=== PATIENT | female | born 1985 | race American Indian/Alaskan Native ===

== ENCOUNTER 2018-07-17 13:15 | Emergency (ER) | payer OTHER ==
[2018-07-17 14:41] LABS: Urine Bacteria NONE SEEN /HPF (<20); Urine RBC NONE SEEN /HPF (NONE SEEN)
[2018-07-17 14:42] LABS: Urine Culture Reflex Order NOT NEEDED
[2018-07-17] MEDS ORDERED: MORPHINE 4 MG/ML SYR ONE (14:49)
[2018-07-17] MEDS ORDERED: ONDANSETRON 4 MG/2 ML VIAL ONE (14:49)
--- NOTE | 2018-07-17 15:20 | RAD REPORT ---
EXAM DESCRIPTION: US - Abdomen Exam Limited - 07/17/2018 3:07 pm CLINICAL HISTORY: Abdominal pain. COMPARISON: None. FINDINGS: The gallbladder wall is not thickened. A gallstone is not seen. The biliary tree is normal caliber. IMPRESSION: Unremarkable gallbladder ultrasound.
[2018-07-17 15:26] LABS: Absolute Lymphocytes (CBC) 2.8 K/uL (0.7-4.9); Absolute Monocytes 0.6 K/uL (0.1-1.3); Absolute Neutrophil 4.6 K/uL (1.8-8.0); Basophils % 0.9 % (0-1.3); Eosinophils % 2.2 % (0-4.4); Hematocrit 39.2 % (36.0-45.0); Lymphocytes % 34.5 % (15.3-44.8); MCH 28.1 pg (27.0-35.0); MCV 84.1 fL (80-100); MPV 10.2 fL (7.6-11.3); Monocytes % 6.9 % (3.3-12.3); RBC Red Blood Cell Count 4.66 M/uL (3.86-4.86)
[2018-07-17 15:41] LABS: ALT/SGPT 33 U/L (12-78); AST/SGOT 27 U/L (15-37); Albumin 3.7 g/dL (3.4-5.0); Alkaline Phosphatase 56 U/L (45-117); BUN Blood Urea Nitrogen 7 mg/dL (7-18); Bicarbonate 26 mmol/L (21-32); Bilirubin Direct < 0.1 mg/dL (0-0.2); Bilirubin Total 0.6 mg/dL (0.2-1.0); Glucose Level 88 mg/dL (74-106); Lipase 196 U/L (73-393); Potassium 4.1 mmol/L (3.5-5.1); Protein, Total 7.5 g/dL (6.4-8.2); Sodium Level 141 mmol/L (136-145)
[2018-07-17 15:44] LABS: Urine Blood NEGATIVE (NEG); Urine Glucose NEGATIVE (NEG); Urine Protein NEGATIVE (NEG); Urine Specific Gravity 1.015 (1.005-1.030)
--- NOTE | 2018-07-17 16:31 | RAD REPORT ---
EXAM DESCRIPTION: CT - Abdomen Pelvis W Contrast - 07/17/2018 4:05 pm CLINICAL HISTORY: Abdominal pain/right upper quadrant pain COMPARISON: none. TECHNIQUE: Computed axial tomography of the abdomen pelvis was obtained. 100 cc Isovue-300 was admin istered intravenously. Oral contrast was not requested which limits evaluation of bowel. All CT scans are performed using dose optimization technique as appropriate and may include automated exposure control or mA/KV adjustment according to patient size. FINDINGS: The liver, spleen, pancreas, adrenal and kidneys appear unremarkable. There is no evidence of diverticulitis. The appendix is normal. 5 centimeter cystic right adnexal mass contains layering area of increased density likely representin g blood A small amount of ascites Small umbilical hernia IMPRESSION: A 5 centimeter complex cystic mass in the right adnexa likely representing a hemorrhagic ovarian cyst. Small amount of free fluid. It is recommended that the patient have followup ultrasound in couple months to assess stability/reso lution.
--- NOTE | 2018-07-17 17:08 | EDPHYS ---
Physician Documentation [facility] Name: Zaria Bradley Age: 32 yrs Sex: Female : 1985 Arrival Date: 07/17/2018 Time: 13:16 Bed 19 Private MD: None, None ED Physician Nenita Palmer HPI: 07/17 14:30 This 32 yrs old Other Female presents to ER via Ambulatory with complaints of Abdominal jmm Pain. 14:30 The patient presents with abdominal pain in the right upper quadrant, right lower jmm quadrant. Onset: The symptoms/episode began/occurred today. The symptoms radiate to Associated signs and symptoms: Pertinent negatives: fever, vomiting. The symptoms are described as achy. Modifying factors: The symptoms are alleviated by nothing, the symptoms are aggravated by. This is a 32 year old female with a history of ovarian cysts that presents to the ED with right sided abdominal pain beginning today. Denies vomiting or diarrhea. Pain radiates to her lower back. . 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 - Social history:: Smoking status: Patient/guardian denies using tobacco. - Ebola Screening: : Patient denies travel to an Ebola-affected area in the 21 days before illness onset. ROS: 14:30 Constitutional: Negative for fever, chills, and weight loss, Eyes: Negative for injury, jmm pain, redness, and discharge, ENT: Negative for injury, pain, and discharge, Neck: Negative for injury, pain, and swelling, Cardiovascular: Negative for chest pain, palpitations, and edema, Respiratory: Negative for shortness of breath, cough, wheezing, and pleuritic chest pain. 14:30 MS/Extremity: Negative for injury and deformity, Skin: Negative for injury, rash, and discoloration, Neuro: Negative for headache, weakness, numbness, tingling, and seizure. 14:30 Abdomen/GI: Positive for abdominal pain. 14:30 Back: Positive for radiated pain. 14:30 All other systems are negative. Exam: 14:30 Head/Face: atraumatic. Eyes: EOMI, no conjunctival erythema appreciated ENT: Moist evelyne Mucus Membranes Neck: Trachea midline, Supple Chest/axilla: Normal chest wall appearance and motion. Cardiovascular: Regular rate and rhythm. No edema appreciated Respiratory: Normal respirations, no respiratory distress appreciated 14:30 Constitutional: The patient appears alert, awake, uncomfortable. 14:30 Abdomen/GI: Inspection: abdomen appears normal, Bowel sounds: normal, Palpation: soft, mild abdominal tenderness, in the right upper quadrant, moderate abdominal tenderness, in the suprapubic area and right lower quadrant. 14:30 Back: ROM is normal. 14:30 Musculoskeletal/extremity: ROM: intact in all extremities. 14:30 Skin: Appearance: Color: normal in color. 14:30 Neuro: Orientation: is normal, Mentation: is normal, Memory: is normal, Gait: is steady. 14:30 Psych: Behavior/mood is pleasant, cooperative. Vital Signs: 13:41 BP 151 / 104; Pulse 83; Resp 18; Temp 98.8; Pulse Ox 100% on R/A; Weight 81.65 kg (R); aj1 Height 5 ft. 4 in. (162.56 cm) (R); Pain 6/10; 14:50 BP 116 / 82; Pulse 80; Resp 18; Pulse Ox 100% on R/A; Pain 6/10; em 15:30 BP 112 / 75; Pulse 80; Resp 15; Pulse Ox 99% on R/A; em 16:51 BP 116 / 74; Pulse 75; Resp 19; Pulse Ox 100% on R/A; em 13:41 Body Mass Index 30.90 (81.65 kg, 162.56 cm) aj1 MDM: 14:30 Patient medically screened. hugo 17:06 Data reviewed: vital signs, nurses notes. Counseling: I had a detailed discussion with hugo the patient and/or guardian regarding: the historical points, exam findings, and any diagnostic results supporting the discharge/admit diagnosis, radiology results, the need for outpatient follow up, to return to the emergency department if symptoms worsen or persist or if there are any questions or concerns that arise at home. 17:07 Data reviewed: lab test result(s), radiologic studies. [facility] 17:07 ED course: Pain has decreased in the ED. Patient advised to follow up with CELLULOID TRIMMER. [facility] Patient given strict return precautions. Patient and understood and agree with the plan of care. . 07/17 14:05 Order name: Urine Microscopic Only; Complete Time: 14:44 eb 07/17 14:37 Order name: Urine Dipstick--Ancillary (enter results); Complete Time: 15:47 gm 07/17 14:37 Order name: Basic Metabolic Panel; Complete Time: 15:45 [facility] 07/17 14:37 Order name: CBC with Diff; Complete Time: 15:45 [facility] 07/17 14:37 Order name: Creatinine for Radiology; Complete Time: 15:45 [facility] 07/17 14:37 Order name: Hepatic Function; Complete Time: 15:45 [facility] 07/17 14:37 Order name: Lipase; Complete Time: 15:45 [facility] 07/17 14:37 Order name: IV Saline Lock; Complete Time: 15:10 [facility] 07/17 14:37 Order name: Labs collected and sent; Complete Time: 15:10 [facility] 07/17 14:37 Order name: US Abdomen Limited; Complete Time: 15:22 [facility] 07/17 14:37 Order name: Urine --Ancillary (enter results); Complete Time: 15:47 gm 07/17 15:22 Order name: CT Abd/Pelvis - W/Contrast; Complete Time: 16:40 [facility] 07/17 14:37 Order name: Urine Test (obtain specimen); Complete Time: 14:39 jm Administered Medications: No medications were administered Disposition: 07/17/18 17:07 Discharged to Home. Impression: Unspecified ovarian cysts. - Condition is Stable. - Discharge Instructions: Ovarian Cyst. - Prescriptions for Zofran ODT 4 mg Oral tablet,disintegrating - place 1 tablet by TRANSLINGUAL route every 4-6 hours; 20 tablet. Tylenol- Codeine #3 300-30 mg Oral Tablet - take 1 tablet by ORAL route every 6 hours As needed; 12 tablet. Cephalexin 500 mg Oral Capsule - take 1 capsule by ORAL route every 12 hours for 10 days; 20 capsule. - Medication Reconciliation Form, Thank You Letter, Antibiotic Education, Prescription Opioid Use form. - Follow up: Owen Vega MD; When: 2 - 3 days; Reason: Recheck today's complaints, Continuance of care, Re-evaluation by your physician. Addendum: 07/21/2018 17:23 Co-signature as Attending Physician, Nenita Palmer MD. m a2 Signatures: Dispatcher [employer] Edita Walker, RN RN aj1 Veto Rooney PA PA jmm eJan, Vincent, SALON STYLIST SALON STYLIST em Nenita Palmer MD MD ma2 Corrections: (The following items were deleted from the chart) 07/17 17:31 17:07 07/17/2018 17:07 Discharged to Home. Impression: Unspecified ovarian cysts. em Condition is Stable. Forms are Medication Reconciliation Form, Thank You Letter, Antibiotic Education, Prescription Opioid Use. Follow up: Owen Vega; When: 2 - 3 days; Reason: Recheck today's complaints, Continuance of care, Re-evaluation by your physician. hugo
--- NOTE | 2018-07-17 17:08 | ER ---
Nurse's Notes [facility] Name: Zaria Bradley Age: 32 yrs Sex: Female : 1985 Arrival Date: 07/17/2018 Time: 13:16 Bed 19 Private MD: None, None Diagnosis: Unspecified ovarian cysts Presentation: 07/17 13:29 Presenting complaint: Patient states: Reports cramping for the past 2 days and then aj1 today she starting having burning in the RUQ that radiates to her pelvis and rectum. Denies N/V/D. Denies fever. Transition of care: patient was not received from another setting of care. Onset of symptoms was July 15, 2018. Risk Assessment: Do you want to hurt yourself or someone else? Patient reports no desire to harm self or others. Initial Sepsis Screen: Does the patient meet any 2 criteria? No. Patient's initial sepsis screen is negative. Does the patient have a suspected source of infection? No. Patient's initial sepsis screen is negative. Care prior to arrival: None. 13:29 Method Of Arrival: Ambulatory aj1 13:29 Acuity: DANICA 3 aj1 Triage Assessment: 13:41 General: Appears in no apparent distress. uncomfortable, Behavior is calm, cooperative, aj1 appropriate for age. Pain: Complains of pain in right upper quadrant Pain radiates to gluteal cleft, right lower quadrant and pelvis Pain currently is 6 out of 10 on a pain scale. at worst was 9 out of 10 on a pain scale. Neuro: Level of Consciousness is awake, alert, obeys commands. Cardiovascular: Patient's skin is warm and dry. Respiratory: Airway is patent Respiratory effort is even, unlabored, Respiratory pattern is regular, symmetrical. GI: Reports lower abdominal pain, upper abdominal pain. 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 - Social history:: Smoking status: Patient/guardian denies using tobacco. - Ebola Screening: : Patient denies travel to an Ebola-affected area in the 21 days before illness onset. Screenin:25 Abuse screen: Denies threats or abuse. Nutritional screening: No deficits noted. em Tuberculosis screening: No symptoms or risk factors identified. Fall Risk None identified. Assessment: 14:25 General: Appears in no apparent distress. comfortable, Behavior is calm, cooperative. em Pain: Complains of pain in right upper quadrant Pain currently is 6 out of 10 on a pain scale. Pain began 2-3 days ago. Neuro: Level of Consciousness is awake, alert, obeys commands, Oriented to person, place, time, situation. Cardiovascular: Denies chest pain, Capillary refill < 3 seconds Patient's skin is warm and dry. Respiratory: Airway is patent Respiratory effort is even, unlabored, Respiratory pattern is regular, symmetrical. GI: Abdomen is flat, Bowel sounds present X 4 quads. Abd is soft X 4 quads Abdomen is tender to palpation in right upper quadrant and right lower quadrant Patient currently denies diarrhea, nausea, vomiting. : Denies burning with urination, discharge. EENT: No signs and/or symptoms were reported regarding the EENT system. Derm: Skin is intact, Skin is pink, warm \T\ dry. Musculoskeletal: Range of motion: intact in all extremities. 14:30 General: The previous assessment is accurate, call light remains within reach. . ss 14:50 Reassessment: pt currently refuses pain medication, provider notified, will hold em medication. 15:52 Reassessment: Patient appears in no apparent distress at this time. Patient and/or em family updated on plan of care and expected duration. Pain level reassessed. Patient is alert, oriented x 3, equal unlabored respirations, skin warm/dry/pink. 16:50 Reassessment: Patient appears in no apparent distress at this time. Patient and/or em family updated on plan of care and expected duration. Pain level reassessed. Patient is alert, oriented x 3, equal unlabored respirations, skin warm/dry/pink. currently refuses pain medication, rates pain 6/10. Vital Signs: 13:41 BP 151 / 104; Pulse 83; Resp 18; Temp 98.8; Pulse Ox 100% on R/A; Weight 81.65 kg (R); aj1 Height 5 ft. 4 in. (162.56 cm) (R); Pain 6/10; 14:50 BP 116 / 82; Pulse 80; Resp 18; Pulse Ox 100% on R/A; Pain 6/10; em 15:30 BP 112 / 75; Pulse 80; Resp 15; Pulse Ox 99% on R/A; em 16:51 BP 116 / 74; Pulse 75; Resp 19; Pulse Ox 100% on R/A; em 13:41 Body Mass Index 30.90 (81.65 kg, 162.56 cm) aj1 ED Course: 13:16 Patient arrived in ED. sb2 13:16 None, None is Private Physician. sb2 13:33 Triage completed. aj1 13:41 Arm band placed on Patient placed in an exam room. aj1 13:52 Veto Rooney PA is PHCP. jmm 13:52 Nenita Palmer MD is Attending Physician. jmm 13:57 Vincent Pena LVN is Primary Nurse. em 14:25 Patient has correct armband on for positive identification. Placed in gown. Bed in low em position. Call light in reach. Adult w/ patient. Pulse ox on. NIBP on. 14:50 Initial lab(s) drawn, by me, sent to lab. Urine collected: clean catch specimen, clear. em Inserted saline lock: 20 gauge in right antecubital area, using aseptic technique. Blood collected. 15:08 US Abdomen Limited In Process Unspecified. EDMS 15:24 Radiology exam delayed due to lab results not completed at this time. test jg6 not completed at this time. 16:07 CT Abd/Pelvis - W/Contrast In Process Unspecified. EDMS 17:07 wOen Vega MD is Referral Physician. [facility] 17:28 No provider procedures requiring assistance completed. IV discontinued, intact, em bleeding controlled, No redness/swelling at site. Pressure dressing applied. Administered Medications: No medications were administered Outcome: 17:07 Discharge ordered by . [facility] 17:30 Discharged to home ambulatory, with family. em 17:30 Condition: good 17:30 Discharge instructions given to patient, family, Instructed on discharge instructions, follow up and referral plans. medication usage, Demonstrated understanding of instructions, follow-up care, medications, Prescriptions given X 3. 17:31 Patient left the ED. em Signatures: Dispatcher [employer] EDNacho Velaa, RN RN aj1 Veto Rooney PA PA jmm Munoz, Edgar, COLD SAW OPERATOR COLD SAW OPERATOR Yuki Kelley, RN RN ss Charleen Hess sbBibi [id number]
== END 2018-07-17 17:31 | disposition home or self-care (01) ==
LOC: ER 13:15
DX: N83.209 Unspecified ovarian cyst, unspecified side (principal); Z88.8 Allergy status to other drugs, medicaments and biological substances; Z91.018 Allergy to other foods
CPT/HCPCS: 36415; 74177; 76705; 80048; 80076; 81003; 81015; 81025; 83690; 85025; 99284; J2405; Q9967

== ENCOUNTER 2024-08-15 12:50 | Emergency (ER) | payer BC ==
--- OUTSIDE RECORDS SUMMARY | 2024-08-15 12:53 | XMS REPORT | Continuity of Care Document ---
Author Name Unknown Address [address] [place] [address] [facility] [address] [place] [address] Care Team Providers Care Service Center Manager Name Role Phone Pcp, Patient Does Not Have A Primary Care Physic marychuy [email or web address]_S Attending Clinician Unavaila ble L_Pena Attending Clinician Unavailable Doctor Unassigned, Castella Attending Clinician U Diana Blank Attending Clinician [phone] DIANA ACOSTA Attending Clinician Unavailable Jovan Caputo Attending Clinician Unavailab Katia Silvestre Attending Clinician [phone] WATERS_S Attending Clinician Unavailable Radha Sousa Attending Clinician [phone] G_Pappas Attending Clinician Unavailable GC_GCBZW_Kadiyala_S Admitting Clinician Unavaila ble L_Pena Admitting Clinician Unavailable WATERS_S Admitting Clinician Unavailable G_Pappas Admitting Clinician Unavailable Payers Payer Name Policy Type Policy Number Effective Date Expirati on Date Source [place] [id number] 2020 00:00:00 Problems Condition Name Condition Details Condition Category Status Onset Date Resolution Date Last Treatment Date Treating Clinician Comments Source Nausea Nausea Problem Active 2021-09 0-10 00:00: [facility] Upper abdominal pain Upper Abdominal Pain Problem Active 2021-09 0-10 00:00: 00 [facility] Recurrent urinary tract infection Recurrent Urinary Tract Infection Problem Active 04-30 00:00: 00 [facility] Fever Fever Problem Active 04-30 00:00: 00 [facility] Increased frequency of urination Increased Frequency of Urination Problem Active 04-30 00:00: 00 [facility] Renal angle tenderness Renal Angle Tenderness Problem [facility] 04[facility] Flank pain Flank Pain Problem Active 04-30 00:00: 00 [facility] Suprapubic pain Suprapubic Pain Problem Active 04-30 00:00: 00 [facility] Hyperthyro idism Hyperthyro idism Disease Active 05-16 00:00: 00 [facility] Hirsutism Hirsutism Disease Active 05-16 00:00: 00 [facility] Abnormal uterine bleeding Abnormal uterine bleeding Disease Active 04-08 00:00: 00 [facility] Cervical high risk human papillomav irus (HPV) DNA test positive Cervical high risk human papillomav irus (HPV) DNA test positive Disease Active 04-08 00:00: 00 [facility] ASCUS with positive high risk HPV ASCUS with positive high risk HPV Disease Active 04-08 00:00: 00 [facility] Family history of ovarian cancer Family history of ovarian cancer Disease Active 04-08 00:00: 00 [facility] Depression Depression Disease Active 04-08 00:00: 00 [facility] Anxiety Anxiety Disease Active 04-08 00:00: 00 [facility] Allergies, Adverse Reactions, Alerts Allergy Name Allergy Type Status Severity Reaction(s) Onset Date Inactive Date Treating Clinician Comments Source Claritin Allergy to substanc e Active Moderate to severe [facility] NO KNOWN ALLERGIE S Drug Class Active [facility] Social History Social Habit Start Date Stop Date Quantity Comments Source Exposure to SARS-CoV-2 (event) 2022-09-30 00:00:00 2022-10-10 12:56:00 Not sure [facility] Alcohol intake 2022-10-10 00:00:00 2022-10-10 00:00:00 Current drinker of alcohol (finding) [facility] Tobacco use and exposure 2014-05-16 00:00:00 2014-05-16 00:00:00 Smokeless tobacco non-user [facility] Cigarettes smoked current (pack per day) - Reported 2014-05-16 00:00:00 2014-05-16 00:00:00 [facility] Cigarette pack-years 2014-05-16 00:00:00 2014-05-16 00:00:00 [facility] Alcohol Comment 2014-04-08 00:00:00 2014-04-08 00:00:00 social [facility] History of tobacco use 2014-03-01 00:00:00 Cigarette Smoker [facility] Sex Assigned At 1985 00:00:00 1985 00:00:00 [facility] Smoking Status Start Date Stop Date Source Ex-smoker 2014-05-16 00:00:00 2014-05-16 [facility]00[facility] Ordered Medication Name Filled Medication Name Start Date Stop Date Current Medication? Ordering Clinician Indication Dosage Frequency Signature (SIG) Comments Components Source mupirocin (BACTROBAN) 2 % cream 04-12 00:00: 00 Yes Apply to area(s) 3 (three) times daily. [facility] FOLIC ACID ORAL 05-16 11:18: 44 Yes Take by mouth. [facility] amoxicillin (AMOXIL) 875 mg tablet 05-16 11:18: 44 Yes 875mg Take 875 mg by mouth 2 (two) times daily. [facility] ergocalcife rol (vitamin D2) 1,250 mcg (50,000 unit) capsule TAKE ONE CAPSULE BY MOUTH ONCE WEEKLY ergocalcife rol (vitamin D2) 1,250 mcg (50,000 unit) capsule TAKE ONE CAPSULE BY MOUTH ONCE WEEKLY No ergocalcif demetrio (vitamin D2) 1,250 mcg (50,000 unit) capsule TAKE ONE CAPSULE BY MOUTH ONCE WEEKLY [facility] Pyridium 200 mg tablet Take 1 tablet 3 times a day by oral route as needed for 2 days. Pyridium 200 mg tablet Take 1 tablet 3 times a day by oral route as needed for 2 days. No 1 TID Pyridium 200 mg tablet Take 1 tablet 3 times a day by oral route as needed for 2 days. [facility] sulfamethox azole 800 mg-trimetho prim 160 mg tablet Take 1 tablet every 12 hours by oral route for 7 days. sulfamethox azole 800 mg-trimetho prim 160 mg tablet Take 1 tablet every 12 hours by oral route for 7 days. No 1 Q12H sulfametho xazole 800 mg-trimeth oprim 160 mg tablet Take 1 tablet every 12 hours by oral route for 7 days. [facility] activated charcoal activated charcoal No activated charcoal [facility] ergocalcife rol (vitamin D2) 1,250 mcg (50,000 unit) capsule TAKE ONE CAPSULE BY MOUTH ONCE WEEKLY ergocalcife rol (vitamin D2) 1,250 mcg (50,000 unit) capsule TAKE ONE CAPSULE BY MOUTH ONCE WEEKLY No ergocalcif demetrio (vitamin D2) 1,250 mcg (50,000 unit) capsule TAKE ONE CAPSULE BY MOUTH ONCE WEEKLY [facility] aspirin 325 mg tablet Take 1 tablet every day by oral route for 30 days. aspirin 325 mg tablet Take 1 tablet every day by oral route for 30 days. No 1 Q1D aspirin 325 mg tablet Take 1 tablet every day by oral route for 30 days. [facility] cefdinir 300 mg capsule Take 1 capsule every 12 hours by oral route for 14 days. cefdinir 300 mg capsule Take 1 capsule every 12 hours by oral route for 14 days. No 1capsul e(s) Q12H cefdinir 300 mg capsule Take 1 capsule every 12 hours by oral route for 14 days. [facility] ciprofloxac in 500 mg tablet Take 1 tablet every 12 hours by oral route for 10 days. ciprofloxac in 500 mg tablet Take 1 tablet every 12 hours by oral route for 10 days. No 1 Q12H ciprofloxa dipak 500 mg tablet Take 1 tablet every 12 hours by oral route for 10 days. [facility] tramadol 50 mg tablet Take 1 tablet every 6 hours by oral route. tramadol 50 mg tablet Take 1 tablet every 6 hours by oral route. No 1 Q6H tramadol 50 mg tablet Take 1 tablet every 6 hours by oral route. [facility] aspirin 25 mg-dipyrida mole 200 mg capsule,ext .release 12 hr multiphase Take 1 capsule twice a day by oral route. aspirin 25 mg-dipyrida mole 200 mg capsule,ext .release 12 hr multiphase Take 1 capsule twice a day by oral route. No 1capsul e(s) BID aspirin 25 mg-dipyrid amole 200 mg capsule,ex t.release 12 hr multiphase Take 1 capsule twice a day by oral route. [facility] magnesium oxide 400 mg (241.3 mg magnesium) tablet Take 1 tablet every day by oral route. magnesium oxide 400 mg (241.3 mg magnesium) tablet Take 1 tablet every day by oral route. No 1 Q1D magnesium oxide 400 mg (241.3 mg magnesium) tablet Take 1 tablet every day by oral route. [facility] milk thistle milk thistle No milk thistle [facility] amoxicillin 500 mg-potassiu m clavulanate 125 mg tablet Take 1 tablet every 12 hours by oral route for 10 days. amoxicillin 500 mg-potassiu m clavulanate 125 mg tablet Take 1 tablet every 12 hours by oral route for 10 days. No 1 Q12H amoxicilli n 500 mg-potassi um clavulanat e 125 mg tablet Take 1 tablet every 12 hours by oral route for 10 days. [facility] fluconazole 150 mg tablet Take 1 tablet every week by oral route. start after completion of antibiotics fluconazole 150 mg tablet Take 1 tablet every week by oral route. start after completion of antibiotics No 1 Q1W fluconazol e 150 mg tablet Take 1 tablet every week by oral route. start after completion of antibiotic s [facility] lidocaine (PF) 10 mg/mL (1 %) injection solution Take 2.1 mL by injection route. lidocaine (PF) 10 mg/mL (1 %) injection solution Take 2.1 mL by injection route. No 2.1mL lidocaine (PF) 10 mg/mL (1 %) injection solution Take 2.1 mL by injection route. [facility] ceftriaxone 1 gram solution for injection Take 1 g by injection route. ceftriaxone 1 gram solution for injection Take 1 g by injection route. No 1g ceftriaxon e 1 gram solution for injection Take 1 g by injection route. [facility] Vital Signs Vital Name Observation Time Observation Value Comments Josi madrid Body height 2022-10-10 19:04:00 162.6 cm [facility] Body weight 2022-10-10 19:04:00 86.183 kg [facility] BMI 2022-10-10 19:04:00 32.61 kg/m2 [facility] BP Diastolic 2022-06-10 00:00:00 69 mm[Hg] [facility] Height 2022-06-10 00:00:00 64 [facility]in_i[facility] BMI (Body Mass Index) 2022-06-10 00:00:00 32.9 kg/m2 [facility] BP Systolic 2022-06-10 00:00:00 112 mm[Hg] [facility] Body Weight 2022-06-10 00:00:00 3068.8 [oz_av] [facility] BP Diastolic 2022-04-30 00:00:00 70 mm[Hg] [facility] Height 2022-04-30 00:00:00 64 [in_i] [facility] BMI (Body Mass Index) 2022-04-30 00:00:00 32.9 kg/m2 [facility] BP Systolic 2022-04-30 00:00:00 111 mm[Hg] [facility] Body Weight 2022-04-30 00:00:00 3068.8 [oz_av] [facility] BP Diastolic 2021-11-09 00:00:00 78 mm[Hg] [facility] Height 2021-11-09 00:00:00 64 [in_i] [facility] BMI (Body Mass Index) 2021-11-09 00:00:00 32.1 kg/m2 [facility] BP Systolic 2021-11-09 00:00:00 113 mm[Hg] [facility] Body Weight 2021-11-09 00:00:00 2988.8 [oz_av] [facility] BP Diastolic 2021-08-02 00:00:00 74 mm[Hg] [facility] Height 2021-08-02 00:00:00 64 [in_i] [facility] BMI (Body Mass Index) 2021-08-02 00:00:00 31.5 kg/m2 [facility] BP Systolic 2021-08-02 00:00:00 114 mm[Hg] [facility] Body Weight 2021-08-02 00:00:00 2937.6 [oz_av] [facility] BP Diastolic 2021-06-26 00:00:00 69 mm[Hg] [facility] Height 2021-06-26 00:00:00 64 [in_i] [facility] BMI (Body Mass Index) 2021-06-26 00:00:00 31.1 kg/m2 [facility] BP Systolic 2021-06-26 00:00:00 114 mm[Hg] [facility] Body Weight 2021-06-26 00:00:00 2902.4 [oz_av] [facility] Procedures Procedure Date / Time Performed Performing Clinicia n Source EXTERNAL PROVIDER RECORDS 2022-10-29 06:01:00 Doctor Unassigned, Castella [facility] CT, abdomen, w/ contrast 2021-06-26 00:00:00 [facility] CT, abdomen + pelvis, w/ contrast 2021-06-26 00:00:00 [facility] MRI, kidney, w/wo contrast 2021-06-26 00:00:00 [facility] Procedure on [facility] Plan of Care Planned Activity Planned Date Details Comments Source Diagnostic Test Pending 2022-04-30 00:00:00 urinalysis, dipstick [code = urinalysis, dipstick] [facility] Instructions [facility] Encounters Start Date/Time End Date/Time Encounter Type Admission Type Attending Clinicians Care Facility Care Department Encounter ID Source 2023-06-29 00:00:00 2023-06-29 00:00:00 Outpatient GC_GCBZW_Ka diyala_S [facility] [id number] [facility] 2022-12-24 00:00:00 2022-12-24 00:00:00 Outpatient L_Pena [facility] [id number] 2022-11-19 00:00:00 2022-11-19 00:00:00 Outpatient L_Pena [facility] [id number] [facility] 2022-10-29 00:00:00 2022-10-29 00:00:00 Orders Only Doctor Unassigned, Castella [facility] [id number] [facility] 2022-10-15 00:00:00 2022-10-15 00:00:00 Outpatient L_Pena [facility] [id number] [facility] 2022-10-10 13:15:00 2022-10-10 13:45:00 Office Visit Diana Acosta [facility] [id number] [facility] 2022-10-10 13:15:00 2022-10-10 13:15:00 Outpatient DIANA WILCOX [facility] [id number] [facility] 2022-09-15 15:52:00 2022-09-15 19:08:00 Emergency TR Jovan Caputo [facility] [id number] Cel[facility] 2022-09-11 00:00:00 2022-09-11 00:00:00 Outpatient L_Pena [facility] [id number] [place] 2022-06-10 00:00:00 2022-06-10 00:00:00 Outpatient L_Pena [facility] [id number] [facility] 2022-06-10 00:00:00 2022-06-10 00:00:00 Katia oPnce APRN, MSN, [facility]-BC: [address] [place] [address], [address] [place] [address] , Ph. [facility] [id number] [facility] 2022-04-30 00:00:00 2022-04-30 00:00:00 Outpatient L_Pena [facility] [id number] [facility] 2022-04-30 00:00:00 2022-04-30 00:00:00 Katia Ponce APRN, MSN, [facility]-: [address] [place] [address], Suite [facility], [place] [address] , Ph. [facility] [id number] [facility] 2022-04-30 00:00:00 2022-04-30 00:00:00 Outpatient Kris Katia [facility] [id number] 2021-11-09 12:35:00 2021-11-09 12:35:00 Outpatient KEVIN_S [facility] [id number] [facility] 2021-11-09 00:00:00 2021-11-09 00:00:00 Outpatient Radha Sousa [facility] [id number] 2021-11-09 00:00:00 2021-11-09 00:00:00 Radha SousaERUM-BLOW OFF WORKER-C: [address], [address], [place] [address] , Ph. [facility] [id number] [facility] 2021-08-20 10:23:00 2021-08-20 10:23:00 Outpatient WATERS_S [facility] [id number] [facility] 2021-08-16 04:10:00 2021-08-16 04:10:00 Outpatient G[place] [id number] [facility] 2021-08-02 03:25:00 2021-08-02 03:25:00 Outpatient WATERS_S [facility] [id number] [facility] 2021-08-02 00:00:00 2021-08-02 00:00:00 Outpatient Radha Sousa [facility] [id number] 2021-08-02 00:00:00 2021-08-02 00:00:00 Radha SousaERUM-BLOW OFF WORKER-C: [address], [address], [place] [address] , Ph. [facility] [id number] [facility] 2021-07-07 03:31:00 2021-07-07 03:31:00 Outpatient WATERS_S [facility] [id number] [facility] 2021-06-26 10:32:00 2021-06-26 10:32:00 Outpatient WATERS_S [facility] [id number] [facility] 2021-06-26 00:00:00 2021-06-26 00:00:00 Outpatient Radha Sousa [facility] [id number] 2021-06-26 00:00:00 2021-06-26 00:00:00 SWATHI LyC: [address], [address], [place] [address] , Ph. [facility] [id number] [facility] Results Test Description Test Time Test Comments Results Result Co mments Source [facility]
[2024-08-15 13:53] LABS: Absolute Eosinophils 0.1 K/uL (0-0.5); Absolute Lymphocytes (CBC) 2.4 K/uL (0.7-4.9); Absolute Monocytes 0.5 K/uL (0.1-1.3); Absolute Neutrophil 3.2 K/uL (1.8-8.0); Basophils % 0.7 % (0-1.3); Eosinophils % 1.1 % (0-4.4); Hematocrit 37.7 % (36.0-45.0); Hemoglobin 11.9 g/dL (12.0-15.0); Lymphocytes % 38.3 % (15.3-44.8); MCH 26.6 pg (27.0-35.0); MCHC 31.7 g/dL (32.0-36.0); MPV 10.3 fL (7.6-11.3); Monocytes % 8.3 % (3.3-12.3); Neutrophils % 51.6 % (41.7-73.7); Platelets 204 thou/uL (152-406); RBC Red Blood Cell Count 4.48 M/uL (3.86-4.86); Red Cell Distribution Width 14.1 % (12.1-15.2)
--- NOTE | 2024-08-15 13:56 | RAD REPORT ---
Procedure: Chest Pa And Lat (2 Views) HISTORY: Cough COMPARISON: 2016 FINDINGS: The lungs appear clear of acute infiltrate. No significant pleural effusion noted. The heart is normal size. IMPRESSION: No acute abnormality is displayed.
[2024-08-15 14:10] LABS: Anion Gap 8.7 mEq/L (5.0-15.0); Potassium 3.7 mEq/L (3.5-5.1); Troponin High Sensitivity 3.6 pg/mL (<58.9)
--- NOTE | 2024-08-15 14:53 | ER ---
Nurse's Notes [facility] Name: Zaria Bradley Age: 38 yrs Sex: Female : 1985 Arrival Date: 08/15/2024 Time: 12:50 Bed 6 Private MD: Diagnosis: Costochondritis Presentation: 08/15 13:06 Chief complaint: Patient states: PAIN TO LEFT SIDE OF RIBS ONSET TODAY. PT STATES THAT cm10 THE PAIN RADIATES TO BACK. PT ALSO REPORTS CHILLS. Coronavirus screen: Client denies travel out of the [place] in the last 14 days. Ebola Screen: Patient denies travel to an Ebola-affected area in the 21 days before illness onset. No symptoms or risks identified at this time. Initial Sepsis Screen: Does the patient meet any 2 criteria? No. Patient's initial sepsis screen is negative. Does the patient have a suspected source of infection? No. Patient's initial sepsis screen is negative. Risk Assessment: Do you want to hurt yourself or someone else? Patient reports no desire to harm self or others. Onset of symptoms was August 15, 2024. 13:06 Method Of Arrival: Ambulatory cm10 13:06 Acuity: DANICA 3 cm10 Triage Assessment: 13:07 General: Appears in no apparent distress. comfortable, Behavior is calm, cooperative. cm10 Pain: Complains of pain in left lateral anterior chest. Neuro: No deficits noted. Level of Consciousness is awake, alert, obeys commands, Oriented to person, place, time, situation, Appropriate for age. Respiratory: No deficits noted. Airway is patent Respiratory effort is even, unlabored, Respiratory pattern is regular, symmetrical. 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 - Infectious Disease History:: Denies. - Social history:: Smoking status: Patient denies any tobacco usage or history of. Screenin:10 [facility] ED Fall Risk Assessment (Adult) History of falling in the last 3 months, bp including since admission No falls in past 3 months (0 pts) Confusion or Disorientation No (0 pts) Intoxicated or Sedated No (0 pts) Impaired Gait No (0 pts) Mobility Assist Device Used No (0 pt) Altered Elimination No (0 pt) Score/Fall Risk Level 0 - 2 = Low Risk Oriented to surroundings. Abuse screen: Denies threats or abuse. Denies injuries from another. Nutritional screening: No deficits noted. Tuberculosis screening: No symptoms or risk factors identified. Assessment: 13:10 General: Appears in no apparent distress. Behavior is calm, cooperative, appropriate bp for age. Cardiovascular: Rhythm is sinus rhythm. Respiratory: Airway is patent Respiratory effort is even, unlabored, Breath sounds are clear bilaterally. Vital Signs: 13:06 BP 142 / 76; Pulse 74; Resp 16; Temp 97.9(TE); Pulse Ox 100% on R/A; Weight 77.11 kg; cm10 Height 5 ft. 4 in. ; Pain 4/10; 15:04 BP 137 / 85; Pulse 78; Resp 16; Temp 97.5; Pulse Ox 100% ; bp 13:06 Body Mass Index 29.18 (77.11 kg, 162.56 cm) cm10 13:06 Pain Scale: Adult cm10 ED Course: 12:52 Patient arrived in ED. im 13:07 Triage completed. cm10 13:08 Arm band placed on right wrist. Patient placed in waiting room. cm10 13:10 Patient has correct armband on for positive identification. bp 13:22 Patient placed in an exam room, on a stretcher. ll1 13:23 Jeet Horton, RN is Primary Nurse. bp 13:35 EKG done, by ED staff, reviewed by Clint Jenkins MD. em1 13:39 Initial lab(s) drawn, by ma, sent to lab. Inserted saline lock: 20 gauge in right bp antecubital area, using aseptic technique. Blood collected. Flushed with 10 mL NS. 13:46 Chest Pa And Lat (2 Views) XRAY In Process Unspecified. EDMS 14:24 Chad Jeffrey FNP-C is PHCP. dr5 14:24 Clint Jenkins MD is Attending Physician. dr5 15:04 Provided Education on: NA. bp 15:04 No provider procedures requiring assistance completed. IV discontinued, intact, bp bleeding controlled, No redness/swelling at site. Pressure dressing applied. Administered Medications: No medications were administered Medication: 13:10 VIS not applicable for this client. bp Outcome: 14:52 Discharge ordered by . dr5 15:04 Discharged to home ambulatory, with family, bp 15:04 Condition: stable 15:04 Discharge instructions given to patient, Instructed on discharge instructions, follow up and referral plans. Demonstrated understanding of instructions, follow-up care, 15:05 Patient left the ED. bp Signatures: Dispatcher [employer] Vignesh Morataya em1 Jeet Horton RN RN Daly Ambriz RN RN ll1 Becca Cisneros Clarissa, RN RN cm10 Chad Jeffrey, LEAVE COORDINATOR-C LEAVE COORDINATOR-[facility]
--- NOTE | 2024-08-15 14:53 | EDPHYS ---
Physician Documentation [facility] Name: Zaria Bradley Age: 38 yrs Sex: Female : 1985 Arrival Date: 08/15/2024 Time: 12:50 Bed 6 Private MD: ED Physician Clint Jenkins HPI: 08/15 14:53 This 38 yrs old Female presents to ER via Ambulatory with complaints of dr5 Shortness Of Breath, Rib pain, Chest Pain - 1 month. 14:53 Patient is a 38-year-old female with history of alpha-gal syndrome and EDS coming in dr5 with left-sided rib pain has been intermittent for the past month. Patient states that she suppresses the urge to cough. Patient has not taken any medications as she likes to stick to herbal medications patient denies fever.. 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 - Infectious Disease History:: Denies. - Social history:: Smoking status: Patient denies any tobacco usage or history of. ROS: 14:53 Constitutional: as per hpi dr5 Exam: 14:53 Constitutional: This is a well developed, well nourished patient who is awake, alert, dr5 and in no acute distress. Head/Face: Normocephalic, atraumatic. Eyes: Pupils equal round and reactive to light, extra-ocular motions intact. Lids and lashes normal. Conjunctiva and sclera are non-icteric and not injected. Cornea within normal limits. Periorbital areas with no swelling, redness, or edema. Neck: Trachea midline, no thyromegaly or masses palpated, and no cervical lymphadenopathy. Supple, full range of motion without nuchal rigidity, or vertebral point tenderness. No Meningismus. Chest/axilla: Normal chest wall appearance and motion. Nontender with no deformity. No lesions are appreciated. Cardiovascular: Regular rate and rhythm with a normal S1 and S2. Normal PMI, no JVD. No pulse deficits. Respiratory: Lungs have equal breath sounds bilaterally, clear to auscultation. No rales, rhonchi or wheezes noted. No increased work of breathing, no retractions or nasal flaring. Back: No spinal tenderness. No costovertebral tenderness. Full range of motion. Skin: Warm, dry with normal turgor. Normal color with no rashes, no lesions, and no evidence of cellulitis. MS/ Extremity: Pulses equal, no cyanosis. Neurovascular intact. Full, normal range of motion. Neuro: Awake and alert, GCS 15, oriented to person, place, time, and situation. Cranial nerves II-XII grossly intact. Motor strength 5/5 in all extremities. Sensory grossly intact. Cerebellar exam normal. Normal gait. Vital Signs: 13:06 BP 142 / 76; Pulse 74; Resp 16; Temp 97.9(TE); Pulse Ox 100% on R/A; Weight 77.11 kg; cm10 Height 5 ft. 4 in. ; Pain 4/10; 15:04 BP 137 / 85; Pulse 78; Resp 16; Temp 97.5; Pulse Ox 100% ; bp 13:06 Body Mass Index 29.18 (77.11 kg, 162.56 cm) cm10 13:06 Pain Scale: Adult cm10 MDM: 14:25 Medical Screening Exam initiated dr5 14:53 Differential diagnosis: asthma, Bronchitis Pneumonia. Antibiotic administration: Not dr5 indicated, the patient does not have an appreciated infiltrate. Data reviewed: vital signs, nurses notes, lab test result(s), radiologic studies, plain films. Historians other than the Patient: Spouse/Significant Other: Spouse. Care significantly affected by the following chronic conditions: Alpha-gal syndrome, EDS. Care significantly affected by the following Social Determinants of Health: Poor access to healthcare and/or lack of insurance, Poor access to transportation, Problems related to employment. Counseling: I had a detailed discussion with the patient and/or guardian regarding the historical points, exam findings, and any diagnostic results supporting the discharge/admit diagnosis, the presence of at least one elevated blood pressure reading (>120/80) during this emergency department visit, lab results, radiology results, the need for outpatient follow up, for definitive care, a family practitioner, to return to the emergency department if symptoms worsen or persist or if there are any questions or concerns that arise at home. ED course: Offered patient anti-inflammatories and patient declined. Patient reports that she wanted to know if it was pneumonia but also stated she would not take antibiotics if needed. Recommended patient take small dose of anti-inflammatories if pain gets worse. Follow-up primary care doctor as needed. All questions answered. 08/15 13:08 Order name: Basic Metabolic Panel; Complete Time: 14:25 cm10 08/15 13:08 Order name: CBC with Diff; Complete Time: 14:25 cm10 08/15 13:08 Order name: Troponin HS; Complete Time: 14:25 cm10 08/15 13:08 Order name: Chest Pa And Lat (2 Views) XRAY; Complete Time: 14:25 cm10 08/15 13:08 Order name: Cardiac monitoring; Complete Time: 13:32 cm10 08/15 13:08 Order name: EKG - Nurse/Tech; Complete Time: 13:32 cm10 08/15 13:08 Order name: IV Saline Lock; Complete Time: 13:38 cm10 08/15 13:08 Order name: Labs collected and sent; Complete Time: 13:39 cm10 08/15 13:08 Order name: O2 Per Protocol; Complete Time: 13:32 cm10 08/15 13:08 Order name: O2 Sat Monitoring; Complete Time: 13:32 cm10 Administered Medications: No medications were administered Disposition Summary: 08/15/24 14:52 Discharge Ordered Notes: Location: Home dr5 Condition: Stable dr5 Diagnosis - Costochondritis dr5 Followup: dr5 - With: Emergency Department - When: As needed - Reason: Worsening of condition Followup: dr5 - With: Private Physician - When: 1 - 2 days - Reason: Recheck today's complaints, Continuance of care, Re-evaluation by your physician Discharge Instructions: - Discharge Summary Sheet dr5 - Costochondritis, [id number] dr5 Forms: - Medication Reconciliation Form dr5 - Patient Portal Instructions dr5 - Leadership Thank You Letter dr5 Signatures: Dispatcher [employer] EDAlka Boateng RN RN cm10 Chad Jeffrey, TAGMAN-C TAGMAN-[id number] Corrections: (The following items were deleted from the chart) 13: 13:09 BASIC METABOLIC PANEL+C.LAB.BRZ ordered. EDMS EDMS 13: 13:09 CBC+H.LAB.BRZ ordered. EDMS EDMS 13: 13:09 Troponin High Sensitivity+C.LAB.BRZ ordered. EDMS EDMS 13: 13:09 Chest Pa And Lat (2 Views)+RAD.RAD.BRZ ordered. EDMS EDMS
[2024-08-15 15:20] VITALS: O2SAT 100
[2024-08-15 15:22] VITALS: BP 137/85; TEMP 97.5
--- NOTE | 2024-08-17 12:03 | EKG ---
Test Date: 2024-08-15 Test Time: 13:33:08 Airline Managerial Supervisor: BRIANA MEASUREMENT RESULTS: Intervals: Rate: 67 VT: 122 QRSD: 74 QT: 412 QTc: 435 Carson: P: 32 VT: 122 QRS: 50 T: 16 INTERPRETIVE STATEMENTS: Normal sinus rhythm Cannot rule out Anterior infarct, age undetermined Abnormal ECG No previous ECG available for comparison Electronically Signed On 08-17-24 12:01:55 PROCESS ENGINEER by Haresh Laws
== END 2024-08-15 15:05 | disposition home or self-care (01) ==
LOC: ER 12:50
DX: M94.0 Chondrocostal junction syndrome [Tietze] (principal); E74.29 Other disorders of galactose metabolism; Q79.60 Ehlers-Danlos syndrome, unspecified
CPT/HCPCS: 36415; 71046; 80048; 84484; 85025; 93005; 99284